=== PATIENT | female | born 1995 | race Caucasian/White ===

== ENCOUNTER 2017-03-27 01:12 | Emergency (ER) | payer OTHER ==
[2017-03-27 01:40] LABS: #Basophils 0.1 thou/uL (0.0-0.2); #Lymphocytes 0.8 thou/uL (1.20-3.40); #Monocytes 0.7 thou/uL (0.11-0.59); #Neutrophils 10.7 thou/uL (1.40-6.50); %Basophils 0.6 % (0.0-1.0); %Eosinophils 0.4 % (0.0-10.0); %Lymphocytes 6.2 % (28.0-48.0); %Monocytes 5.6 % (0.0-4.0); %Neutrophils 87.2 % (31.0-61.0); Hemoglobin 12.9 g/dL (12.0-16.0); Mean Corpuscular HGB CONC 32.3 g/dL (32.0-36.0); Mean Corpuscular Hemoglobin 27.6 pg (25.0-35.0); Mean Corpuscular Volume 85.5 fl (77.0-87.0); Mean Platelet Volume 9.1 fL (7.4-10.4); Platelet Count 202 thou/uL (130-400); RBC Distribution Width 15.3 % (11.5-14.5); Red Blood Cell (RBC) Count 4.68 mill/uL (4.00-5.20); White Blood Cell (WBC) Count 12.3 thou/uL (4.8-10.8)
[2017-03-27 02:00] LABS: ALT (SGPT) 11 U/L (8-55); AST (SGOT) 15 U/L (5-30); Albumin 4.4 g/dL (3.5-5.0); Alkaline Phosphatase 74 U/L (40-150); Anion Gap 16 mmol/L (10-20); BUN (Urea Nitrogen) 8 mg/dL (8.4-21.0); Bilirubin, Total 0.4 mg/dL (0.2-1.2); Calc. Creatinine Clearance 0 mL/min (70-130); Calcium 9.4 mg/dL (7.8-10.44); Carbon Dioxide 25 mmol/L (22-29); Chloride 104 mmol/L (98-107); Estimated GFR-MDRD 74; Globulin 3.4 g/dL (2.4-3.5); Glucose 103 mg/dL (70-105); Potassium 3.6 mmol/L (3.5-5.1); Protein, Total 7.8 g/dL (6.0-8.3); Sodium 141 mmol/L (136-145)
[2017-03-27 02:28] LABS: Bilirubin Negative (Negative); Blood, Urine Trace (Negative); Clarity Hazy (Clear); Glucose, Urine (Dipstick) Negative (Negative); Leukocyte Small (Negative); Nitrite Negative (Negative); Protein, Urine (Dipstick) Negative (Neg-Trace); Urobilinogen 0.2 mg/dL (0.2-1.0)
[2017-03-27 02:31] LABS: Bacteria/HPF Rare-Few HPF (None Seen); Squamous Epithelial 0-3 HPF (0-3); WBC/HPF 21-50 HPF (0-3)
[2017-03-27] MEDS ORDERED: cefTRIAXone\\ROCEPHIN 1 GM VIAL ONE (02:44)
[2017-03-27] MEDS ORDERED: Ibuprofen 600 MG TAB ONE (02:44)
[2017-03-27] MEDS ORDERED: Lidocaine 1% 20 ML MDV ONE (02:44)
[2017-03-27] MEDS ORDERED: Sodium Chloride 0.9% 1,000 ML BAG ONE (07:28)
[2017-03-27] MEDS ORDERED: Sodium Chloride 0.9% 100 ML BAG ONE (07:28)
== END 2017-03-27 03:25 | disposition home or self-care (01) ==
LOC: MADERS 01:12
DX: N39.0 Urinary tract infection, site not specified (principal); E86.0 Dehydration
CPT/HCPCS: 80053; 81003; 81015; 85025; 87040; 87077; 87081; 87086; 87186; 87430; 96361; 96365; J0696; J2001; J7050

== ENCOUNTER 2017-04-09 20:01 | Emergency (ER) | payer OTHER ==
[2017-04-09] MEDS ORDERED: Acetaminophen/Codeine 30-300mg Tablet ONE (20:54)
--- NOTE | 2017-04-09 21:03 | RAD ---
RIGHT HAND: 04/09/17 Three views obtained. HISTORY: Injury hitting a hard object. FINDINGS: There is an oblique mildly displaced fracture involving the mid to distal shaft of the fifth metacar pal. There is also a nondisplaced fracture involving the proximal fourth metacarpal. IMPRESSION: Fractures of the fourth and fifth metacarpals. POS: [facility]
== END 2017-04-09 21:05 | disposition home or self-care (01) ==
LOC: MADERS 20:01
DX: S62.326A Displaced fracture of shaft of fifth metacarpal bone, right hand, initial encounter for closed fracture (principal); S62.344A Nondisplaced fracture of base of fourth metacarpal bone, right hand, initial encounter for closed fracture; W22.01XA Walked into wall, initial encounter